=== PATIENT | male | born 1965 | race Caucasian/White ===

== ENCOUNTER 2019-12-30 14:21 | Emergency (ER) | payer OTHER ==
[~2019-12-30] VITALS: Ht 170.2 cm; Wt 71.7 kg
--- NOTE | 2019-12-30 14:46 | NUR ---
[place] [employer]OUND [place] THE SIDE OF THE [employer]WAY INSIDE HIS CAR. AAOX4. EMOTIONALLY DISTRESS. NOT IN RESP DISTRESS. AMBBULATORY. BROUGHT IN FOR THOUGHT THAT HE WISH HE IS . PER PT, HIS GIRLFRIEND BROKE UP WITH HER LAST NIGHT AND FEELING DEPRESSED. PT VERBALIZED THAT HE WISH HE IS BUT NO PLAN VERBALIZED BY THE PT AND THAT HE IS NOT GOING THROUGHT WITH HURTING HIMSELF. PT IS GOWN AND BELONGINGS PLACED IN LOCKER LOCATED IN UTILITY ROOM. VISUALLY CHECKED AND 1:1 SITTER AT BEDSIDE. WAS AT THE BEDSIDE FOR EVAL. ORDERS RECEIVED, NOTED AND CARRIED OUT. RN PROCEDURE AT BEDSIDE BLOOD DRAW. WILL CONTINUE TO MONITOR PT.
[2019-12-30 15:01] LABS: BASOPHILS # (AUTO) 0.1 /CMM (0.0-0.2); BASOPHILS % (AUTO) 0.8 % (0.0-2.0); EOSINOPHILS % (AUTO) 1.4 % (0.0-6.0); HEMATOCRIT 48 % (39-51); HEMOGLOBIN 15.8 g/dL (13.5-17.5); LYMPHOCYTES # (AUTO) 1.7 /CMM (0.8-4.8); LYMPHOCYTES % (AUTO) 22.9 % (20.0-44.0); MEAN CORPUSCULAR HGB CONC 33 g/dl (31.0-36.0); MEAN CORPUSCULAR VOLUME 87 fL (80-96); MONOCYTES # (AUTO) 0.4 /CMM (0.1-1.30); MONOCYTES % (AUTO) 5.8 % (2.0-12.0); NEUTROPHILS # (AUTO) 5.2 /CMM (1.8-8.9); NEUTROPHILS % (AUTO) 69.1 % (43.0-81.0); PLATELET COUNT (AUTO) 224 /CMM (150-450); RED BLOOD CELL COUNT(AUTO) 5.49 MIL/uL (4.5-6.0); WHITE BLOOD COUNT (AUTO) 7.6 K/uL (4.3-11.0)
[2019-12-30 15:18] LABS: APPEARANCE,URINE Clear (CLEAR); BILIRUBIN,URINE Negative (NEGATIVE); BLOOD, URINE Negative Ery/uL (NEGATIVE); COLOR,URINE Yellow (YELLOW); LEUKOCYTE ESTERASE ,URINE Negative (NEGATIVE); NITRITE, URINE Negative (NEGATIVE); PH,URINE 8.5 (5.0-8.0); PROTEIN,URINE Negative (NEGATIVE); UGLUCOSE Negative (NEGATIVE); UROBILINOGEN,URINE 0.2 EU/dL (0.2)
[2019-12-30 15:19] LABS: ALANINE AMINOTRANSFERASE 23 U/L (12-78); ALBUMIN 3.8 g/dL (3.4-5.0); ALCOHOL, BLOOD < 3 mg/dL (0-0); ALKALINE PHOSPHATASE 73 U/L (46-116); ASPARTATE AMINOTRANSFERASE 14 U/L (15-37); BILIRUBIN,DIRECT 0.2 mg/dL (0.0-0.2); BILIRUBIN,TOTAL 0.5 mg/dL (0.2-1.0); CALCIUM, SERUM 10.1 mg/dL (8.5-10.1); CARBON DIOXIDE 24 mmol/L (21-32); CHLORIDE 104 mmol/L (98-107); CREATININE 0.9 mg/dL (0.6-1.3); GLUCOSE 118 mg/dL (74-106); POTASSIUM 3.7 mmol/L (3.5-5.1); SODIUM SERUM 139 mmol/L (136-145); TOTAL PROTEIN, SERUM 7.2 g/dL (6.4-8.2); UREA NITROGEN, BLOOD 21 mg/dL (7-18)
[2019-12-30 15:34] LABS: ACETAMINOPHEN 0 ug/ml (10-30)
--- NOTE | 2019-12-30 16:38 | NUR ---
This SW met with the patient at bedside. Patient was on the phone when this SW approached. Patient ended conversation and was receptive to meeting with this SW. Patient is alert and oriented x4. Patient confirmed date of , social security number, and provided this SW with updated address. Patient also provided an emergency contact, patients roommate Chemo Triana . Patient reported that he has been diagnosed with depression. Patient reports over the last three years he has been hospitalized at [facility] and [facility]. Patient reports that he felt suicidal within the last couple of weeks. Patient reported that he does not have a plan to harm himself. Patient reports that he has been receiving Transcranial magnetic stimulation (TMS) treatment and that is where he was coming from when his car broke down on the freeway. Patient reports that this is his third week in treatment and felt like he was improving. Patient reports that he did discuss his trigger of breaking up with his girlfriend last night with his doctor. Patient stated that his doctor suggested to continue treatment. This SW inquired about therapeutic treatment, patient informed this SW that prior to his TMS treatment today, he made an appointment with his therapist for regarding his trigger but has not followed up with them since arriving to [facility] ED. SW spoke with Dr. Griffiths regarding this patient. Dr. Griffiths and this SW in agreement patient should be evaluated by Sales Team Recruiter. PLAN: ED to call raimann machine operator directional bore operator. Pending insurance information to be updated.
--- NOTE | 2019-12-30 16:55 | NUR ---
called patricio fleming for psych eval. no eta provided.
--- NOTE | 2019-12-30 18:10 | NUR ---
SENAIT RN AT BEDSIDE FOR PSYCH EVAL
--- NOTE | 2019-12-30 18:50 | NUR ---
PT REFUSED TO HAVA A COVID TESTING
--- NOTE | 2019-12-30 19:03 | NUR ---
SENAIT TALKING TO PT'S PSYCHIATRIST OVER THE PHONE
--- NOTE | 2019-12-30 19:13 | NUR ---
PT IS MEDICALLY AND PSYCHIATRICALLY CLEARED FOR DISCHARGE. PT IS JUST AWAITING FOR GLOBAL ACCOUNT MANAGER BY ROOM MATE.
--- NOTE | 2019-12-30 19:47 | NUR ---
PT WAS PICKED UP BY HIS FRIENDS RENALDO.
--- NOTE | 2019-12-30 19:47 | NUR ---
Patient discharged to home in stable condition. Written and verbal after care instructions given. Patient verbalizes understanding of instruction. Pt ambulatory with a steady gait
[2019-12-30 21:04] VITALS: BP 138/77
== END 2019-12-30 19:48 | disposition home or self-care (01) ==
LOC: ER 14:25
DX: R45.851 Suicidal ideations (principal); F32.9 Major depressive disorder, single episode, unspecified
CPT/HCPCS: 36415; 80048-TC; 80076-TC; 81000-TC; 85025-TC; G0480